=== PATIENT | male | born 1975 | race Caucasian/White ===

== ENCOUNTER 2022-03-09 17:59 | Emergency (ER) | payer OTHER ==
[~2022-03-09] VITALS: Ht 182.9 cm; Wt 120.0 kg
[2022-03-09] MEDS ORDERED: methylPREDNISolone SOD SUCC 125 MG/2 ML VL IM ONE (18:15)
[2022-03-09 18:30] VITALS: BP 151/76
[2022-03-09] MEDS ORDERED: LEVO-28 PO (18:45)
[2022-03-09] MEDS ORDERED: PRED20TA2 PO (18:45)
== END 2022-03-09 22:12 | disposition home or self-care (01) ==
LOC: ER 18:02
DX: J06.9 Acute upper respiratory infection, unspecified (principal)
CPT/HCPCS: 71045